=== PATIENT | female | born 1940 | race Caucasian/White ===

== ENCOUNTER 2016-09-27 17:15 | Inpatient (IN) | payer OTHER, MEDICARE ==
[~2016-09-27] VITALS: Ht 160 cm; Wt 90.6 kg
[~2016-09-27 17:15] MED LIST: ACETAZOLAMIDE125 MG PO; ADVAIR 500/501 DISK IH; ADVAIR HFA120 INHALA IH; AMLODIPINE BESYL5 MG PO; ASPIR 8181 M1 PO; ASPIRIN81 M2 PO; AUGMENTIN500 MG PO; DUONEB 2.5-0.5 M3 ML IH; FA-80.8 MG PO; FUROSEMIDE20 MG PO; GLIPIZIDE5 MG PO; GLUCOPHAGE500 MG PO; JANUVIA100 MG PO; K-DUR10 MEQ PO; KLOR-CON M2020 MEQ PO; LASIX20 MG PO; LASIX40 MG PO; LEVAQUIN500 MG PO; LEVOFLOXACIN750 MG PO; LEVOTHYROXINE50 MCG PO; LIPITOR40 MG PO; LISINOPRIL20 MG PO; LOPRESSOR50 MG PO; METFORMIN HCL500 MG PO; METOPROLOL TART25 MG PO; MUCINEX600 MG PO; NORVASC10 MG PO; NYSTOP60 GM TP; PREDNISONE10 MG PO; PREDNISONE20 MG PO; PROAIR HFA8.5 GM IH; PROTONIX40 MG PO; Protonix PO; SIMVASTATIN20 MG PO; SIMVASTATIN5 MG PO; SPIRIVA RESPIMAT4 GM IH; SPIRIVA1 INHALATI IH; TIROSINT50 MCG PO; ZESTORETIC 20-1 EAC1 PO
[2016-09-27 18:24] LABS: BASOPHIL COUNT 0.1 K/uL (0-0.1); EOSINOPHIL (%) 1.5 % (0-5); EOSINOPHIL COUNT 0.2 K/uL (0-0.3); HEMATOCRIT 31.3 % (36.0-46.0); IMMATURE GRANULOCYTE (%) 1.7 % (0.0-0.7); LYMPHOCYTE COUNT 1.1 K/uL (1.0-2.8); MCH 29.1 PG (29.0-34.0); MCHC 29.7 G/DL (30.0-36.0); MCV 97.8 FL (83-99); MONOCYTE (%) 6.4 % (3-12); MONOCYTE COUNT 0.7 K/uL (0-0.8); NEUTROPHIL (%) 80.5 % (45-76); NEUTROPHIL COUNT 9.3 K/uL (1.8-6.4); PLATELET COUNT 262 K/uL (156-360); RBC DIS.WIDTH-CV 20.6 % (11.8-14.6); RBC DIS.WIDTH-SD 68.7 % (39-53); WHITE BLOOD COUNT 11.5 K/uL (4.1-10.2)
[2016-09-27 18:42] LABS: CHLORIDE 97 mEq/L (99-109); POTASSIUM 4.7 mEq/L (3.7-5.4); SODIUM 144 mEq/L (136-147)
[2016-09-27 18:45] LABS: GLUCOSE 203 mg/dL (70-99)
[2016-09-27 18:46] LABS: ANION GAP 9 MEQ/L (2-14); TROP-I INTERPRETATION NEGATIVE; TROPONIN-I < 0.01 ng/mL (0.0-0.30)
[2016-09-27 18:48] LABS: ALKALINE PHOSPHATASE 89 IU/L (3-129)
[2016-09-27 18:49] LABS: GFR ESTIMATE (CALCULATED) > 59 mL/min/
[2016-09-27 18:50] LABS: UREA NITROGEN (BUN) 30 mg/dL (9-23)
[2016-09-27] MEDS ORDERED: LASIX20 MG PO (20:54)
[2016-09-27] MEDS ORDERED: METFORMIN HCL500 M1 PO (20:55)
[2016-09-27] MEDS ORDERED: TYLENOL EXTRA500 MG PO (20:56)
[2016-09-27] MEDS ORDERED: FOLIC ACID0.4 MG PO (20:56)
[2016-09-27] MEDS ORDERED: ADVAIR 500/501 DISK IH (20:56)
[2016-09-27 23:36] VITALS: BP 122/60
[2016-09-28 04:00] VITALS: BP 112/52
[2016-09-28 08:00] VITALS: BP 138/58
[2016-09-28 08:42] LABS: HEMATOCRIT 28.3 % (36.0-46.0); MCH 28.6 PG (29.0-34.0); MCHC 29.3 G/DL (30.0-36.0); MCV 97.6 FL (83-99); MEAN PLAT.VOLUME 9.8 uM^3 (9.5-12.4); NRBC (%) 0.2 /100 WBC (0-0); PLATELET COUNT 226 K/uL (156-360); RBC DIS.WIDTH-CV 20.6 % (11.8-14.6); RBC DIS.WIDTH-SD 71.3 % (39-53); WHITE BLOOD COUNT 9.1 K/uL (4.1-10.2)
[2016-09-28 09:01] LABS: EOSINOPHIL (%) 1.7 % (0-5); EOSINOPHIL COUNT 0.2 K/uL (0-0.3); IMMATURE GRANULOCYTE (%) 1.2 % (0.0-0.7); IMMATURE GRANULOCYTE COUNT 0.1 K/uL; LYMPHOCYTE COUNT 0.7 K/uL (1.0-2.8); MONOCYTE (%) 7.5 % (3-12); MONOCYTE COUNT 0.7 K/uL (0-0.8); NEUTROPHIL (%) 81.9 % (45-76); NEUTROPHIL COUNT 7.5 K/uL (1.8-6.4)
[2016-09-28 09:21] LABS: ANION GAP ND MEQ/L (2-14); CARBON DIOXIDE (BICARBONATE) > 40.0 MEQ/L (20-31); CHLORIDE 95 MEQ/L (99-109); GFR ESTIMATE (CALCULATED) > 59 mL/min/; GLUCOSE 180 mg/dL (70-99); POTASSIUM 4.3 MEQ/L (3.7-5.4); SAMPLE HEMOLYSIS CHECK 0; SAMPLE ICTERIC CHECK 0; SAMPLE LIPEMIA CHECK 0; SODIUM 145 MEQ/L (136-147); UREA NITROGEN (BUN) 26 mg/dL (9-23)
[2016-09-28 10:01] LABS: BASE EXCESS 20.2 mEq/L (-3 to +3); BICARBONATE 46.9 mEq/L (22-26); CARBOXY HGB 3.9 % (0-5); COMMENTS - BLOOD GASES NAC+; DEVICE NC; METHEMOGLOBIN 1.8 % (0-1.5); O2 FLOW 5 L/MIN; PCO2 74 mm Hg (35-45); PO2 68 mm Hg (80-100); SITE RR; TOTAL RESP RATE 19 resp/min; pH 7.41 (7.35-7.45)
[2016-09-28 12:40] VITALS: BP 119/62
[2016-09-28 12:43] LABS: POINT-OF-CARE METER ID UU13113831
[2016-09-28 16:06] VITALS: BP 97/50
[2016-09-28 17:00] LABS: POINT-OF-CARE METER ID UU13113831
[2016-09-28 20:31] VITALS: BP 111/53
[2016-09-28 21:33] LABS: POINT-OF-CARE METER ID UU13113700
[2016-09-28 23:45] VITALS: BP 134/100
[2016-09-29 00:10] VITALS: BP 110/51
[2016-09-29 04:15] VITALS: BP 109/51
[2016-09-29 06:55] LABS: POINT-OF-CARE METER ID UU13113700
[2016-09-29 07:26] LABS: HEMATOCRIT 31.5 % (36.0-46.0); MCH 28.9 PG (29.0-34.0); MCHC 29.2 G/DL (30.0-36.0); MCV 99.1 FL (83-99); MEAN PLAT.VOLUME 10.7 uM^3 (9.5-12.4); PLATELET COUNT 223 K/uL (156-360); RBC DIS.WIDTH-CV 20.1 % (11.8-14.6); RBC DIS.WIDTH-SD 71.8 % (39-53); RED BLOOD COUNT 3.18 M/uL (3.80-5.20); WHITE BLOOD COUNT 8.6 K/uL (4.1-10.2)
[2016-09-29 07:35] LABS: EOSINOPHIL (%) 1.9 % (0-5); EOSINOPHIL COUNT 0.2 K/uL (0-0.3); IMMATURE GRANULOCYTE (%) 1.5 % (0.0-0.7); IMMATURE GRANULOCYTE COUNT 0.1 K/uL; LYMPHOCYTE COUNT 0.7 K/uL (1.0-2.8); MONOCYTE (%) 7.7 % (3-12); MONOCYTE COUNT 0.7 K/uL (0-0.8); NEUTROPHIL (%) 80.3 % (45-76); NEUTROPHIL COUNT 6.9 K/uL (1.8-6.4)
[2016-09-29 07:43] VITALS: BP 103/48
[2016-09-29 09:13] LABS: ANION GAP ND MEQ/L (2-14); CHLORIDE 94 MEQ/L (99-109); GFR ESTIMATE (CALCULATED) > 59 mL/min/; GLUCOSE 175 mg/dL (70-99); POTASSIUM 4.2 MEQ/L (3.7-5.4); SAMPLE HEMOLYSIS CHECK 0; SAMPLE ICTERIC CHECK 0; SAMPLE LIPEMIA CHECK 0; SODIUM 145 MEQ/L (136-147); UREA NITROGEN (BUN) 31 mg/dL (9-23)
[2016-09-29 09:14] LABS: CARBON DIOXIDE (BICARBONATE) > 40.0 MEQ/L (20-31)
[2016-09-29 12:30] VITALS: BP 104/57; BP 114/54
[2016-09-29 12:45] LABS: POINT-OF-CARE METER ID UU13113831
[2016-09-29 15:45] VITALS: BP 107/51
[2016-09-29 17:14] LABS: POINT-OF-CARE METER ID UU14162513
[2016-09-29 20:24] VITALS: BP 115/54
[2016-09-29 21:38] LABS: POINT-OF-CARE METER ID UU13113831
[2016-09-30 00:08] VITALS: BP 110/54
[2016-09-30 04:16] VITALS: BP 117/58
[2016-09-30 06:44] LABS: HEMATOCRIT 26.5 % (36.0-46.0); MCH 28.8 PG (29.0-34.0); MCHC 28.3 G/DL (30.0-36.0); MCV 101.9 FL (83-99); MEAN PLAT.VOLUME 10.3 uM^3 (9.5-12.4); PLATELET COUNT 230 K/uL (156-360); RBC DIS.WIDTH-CV 19.9 % (11.8-14.6); RBC DIS.WIDTH-SD 72.8 % (39-53); WHITE BLOOD COUNT 7.5 K/uL (4.1-10.2)
[2016-09-30 07:09] LABS: ANION GAP ND MEQ/L (2-14); CHLORIDE 96 MEQ/L (99-109); GFR ESTIMATE (CALCULATED) > 59 mL/min/; GLUCOSE 179 mg/dL (70-99); POTASSIUM 4.2 MEQ/L (3.7-5.4); SAMPLE HEMOLYSIS CHECK 0; SAMPLE ICTERIC CHECK 0; SAMPLE LIPEMIA CHECK 0; SODIUM 146 MEQ/L (136-147); UREA NITROGEN (BUN) 33 mg/dL (9-23)
[2016-09-30 07:12] LABS: CARBON DIOXIDE (BICARBONATE) > 40.0 MEQ/L (20-31)
[2016-09-30 07:48] VITALS: BP 120/53
[2016-09-30 11:47] VITALS: BP 105/52
[2016-09-30 11:58] LABS: POINT-OF-CARE METER ID UU13113700
[2016-09-30 13:21] LABS: MCV 100.7 FL (83-99)
[2016-09-30 15:42] VITALS: BP 105/47
[2016-09-30 17:24] LABS: POINT-OF-CARE METER ID UU13113700
[2016-09-30 20:00] VITALS: BP 100/62
[2016-09-30 21:17] LABS: POINT-OF-CARE METER ID UU13113831
[2016-10-01] VITALS (11 sets, daily range): BP systolic 90–134; BP diastolic 43–62
[2016-10-01 07:48] LABS: POINT-OF-CARE METER ID UU13113831
[2016-10-01 09:44] LABS: ABSOLUTE RETICULOCYTE CT. 0.21 M/uL (0.02-0.08); HEMATOCRIT 25.4 % (36.0-46.0); IMM.RETIC FRACTION 18.3 % (3-19); MCH 28.3 PG (29.0-34.0); MCV 101.2 FL (83-99); MEAN PLAT.VOLUME 10.5 uM^3 (9.5-12.4); PLATELET COUNT 247 K/uL (156-360); RBC DIS.WIDTH-CV 19.3 % (11.8-14.6); RBC DIS.WIDTH-SD 71.5 % (39-53); RED BLOOD COUNT 2.51 M/uL (3.80-5.20); RETICULOCYTE COUNT 8.6 % (0.5-1.8); WHITE BLOOD COUNT 7.2 K/uL (4.1-10.2)
[2016-10-01 10:47] LABS: FERRITIN 129 NG/ML (10-291)
[2016-10-01 10:49] LABS: ANION GAP ND MEQ/L (2-14); CHLORIDE 93 MEQ/L (99-109); GFR ESTIMATE (CALCULATED) > 59 mL/min/; GLUCOSE 185 mg/dL (70-99); MAGNESIUM 1.9 mg/dl (1.3-2.7); POTASSIUM 4.2 MEQ/L (3.7-5.4); SAMPLE HEMOLYSIS CHECK 0; SAMPLE ICTERIC CHECK 0; SAMPLE LIPEMIA CHECK 0; SODIUM 146 MEQ/L (136-147); UREA NITROGEN (BUN) 33 mg/dL (9-23)
[2016-10-01 10:50] LABS: CARBON DIOXIDE (BICARBONATE) > 40.0 MEQ/L (20-31)
[2016-10-02 00:40] VITALS: BP 107/51
[2016-10-02 05:55] VITALS: BP 114/58
[2016-10-02 06:43] LABS: HEMATOCRIT 27.1 % (36.0-46.0); MCH 29.9 PG (29.0-34.0); MCHC 29.9 G/DL (30.0-36.0); MEAN PLAT.VOLUME 11.7 uM^3 (9.5-12.4); PLATELET COUNT 216 K/uL (156-360); RBC DIS.WIDTH-CV 18.1 % (11.8-14.6); RBC DIS.WIDTH-SD 65.8 % (39-53); RED BLOOD COUNT 2.71 M/uL (3.80-5.20); WHITE BLOOD COUNT 8.7 K/uL (4.1-10.2)
[2016-10-02 07:56] VITALS: BP 115/55
[2016-10-02 11:49] VITALS: BP 108/63
[2016-10-02 12:10] LABS: POINT-OF-CARE METER ID UU13113831
[2016-10-02 15:52] VITALS: BP 114/55
[2016-10-02] MEDS ORDERED: FURO40I IV (16:34)
[2016-10-02] MEDS ORDERED: PROTONIX IV40 MG IV (16:34)
[2016-10-02 17:43] LABS: POINT-OF-CARE METER ID UU13113831
[2016-10-02 19:57] VITALS: BP 102/49
[2016-10-02 20:29] LABS: HEMATOCRIT 25.9 % (36.0-46.0); MCV 99.6 FL (83-99)
[2016-10-03] VITALS (7 sets, daily range): BP systolic 97–129; BP diastolic 46–58
[2016-10-03 06:18] LABS: HEMATOCRIT 25.7 % (36.0-46.0); MCH 29.4 PG (29.0-34.0); MCHC 29.2 G/DL (30.0-36.0); MCV 100.8 FL (83-99); MEAN PLAT.VOLUME 10.3 uM^3 (9.5-12.4); PLATELET COUNT 231 K/uL (156-360); RBC DIS.WIDTH-CV 17.8 % (11.8-14.6); RBC DIS.WIDTH-SD 65.4 % (39-53); RED BLOOD COUNT 2.55 M/uL (3.80-5.20); WHITE BLOOD COUNT 6.8 K/uL (4.1-10.2)
[2016-10-03 06:47] LABS: ANION GAP 11 MEQ/L (2-14); CHLORIDE 95 MEQ/L (99-109); GFR ESTIMATE (CALCULATED) > 59 mL/min/; GLUCOSE 157 mg/dL (70-99); SAMPLE HEMOLYSIS CHECK 0; SAMPLE ICTERIC CHECK 0; SAMPLE LIPEMIA CHECK 0; SODIUM 146 MEQ/L (136-147); UREA NITROGEN (BUN) 24 mg/dL (9-23)
[2016-10-03 12:20] LABS: POINT-OF-CARE METER ID UU13113700
[2016-10-03 16:49] LABS: POINT-OF-CARE METER ID UU13113700
[2016-10-03 20:11] LABS: HEMATOCRIT 24.5 % (36.0-46.0); MCV 98.8 FL (83-99)
[2016-10-03 21:14] LABS: POINT-OF-CARE METER ID UU13113700
[2016-10-04 00:18] VITALS: BP 98/47
[2016-10-04 04:28] VITALS: BP 99/51
[2016-10-04 07:56] LABS: POINT-OF-CARE METER ID UU14174225
[2016-10-04 08:05] VITALS: BP 95/63
[2016-10-04 11:06] VITALS: BP 122/56
[2016-10-04 11:07] LABS: POINT-OF-CARE METER ID UU14174225
[2016-10-04 15:11] VITALS: BP 138/60
[2016-10-04 16:17] LABS: POINT-OF-CARE METER ID UU14174225
[2016-10-04 20:00] VITALS: BP 117/57
[2016-10-04 20:32] LABS: MCV 99.6 FL (83-99)
[2016-10-05] VITALS (15 sets, daily range): BP systolic 92–144; BP diastolic 41–63
[2016-10-05 07:09] LABS: ANION GAP 10 MEQ/L (2-14); CHLORIDE 97 MEQ/L (99-109); GFR ESTIMATE (CALCULATED) 57 mL/min/; GLUCOSE 160 mg/dL (70-99); POTASSIUM 3.7 MEQ/L (3.7-5.4); SAMPLE HEMOLYSIS CHECK 0; SAMPLE ICTERIC CHECK 0; SAMPLE LIPEMIA CHECK 0; SODIUM 143 MEQ/L (136-147); UREA NITROGEN (BUN) 33 mg/dL (9-23)
[2016-10-05 08:06] LABS: EOSINOPHIL (%) 3.1 % (0-5); EOSINOPHIL COUNT 0.2 K/uL (0-0.3); HEMATOCRIT 22.7 % (36.0-46.0); IMMATURE GRANULOCYTE (%) 0.5 % (0.0-0.7); LYMPHOCYTE COUNT 0.7 K/uL (1.0-2.8); MCH 29.1 PG (29.0-34.0); MCHC 29.1 G/DL (30.0-36.0); MEAN PLAT.VOLUME 10.5 uM^3 (9.5-12.4); MONOCYTE (%) 6.4 % (3-12); MONOCYTE COUNT 0.5 K/uL (0-0.8); NEUTROPHIL (%) 80.8 % (45-76); NEUTROPHIL COUNT 6.3 K/uL (1.8-6.4); PLATELET COUNT 233 K/uL (156-360); RBC DIS.WIDTH-CV 17.5 % (11.8-14.6); RBC DIS.WIDTH-SD 63.9 % (39-53); RED BLOOD COUNT 2.27 M/uL (3.80-5.20); WHITE BLOOD COUNT 7.8 K/uL (4.1-10.2)
[2016-10-05 11:21] LABS: TROP-I INTERPRETATION NEGATIVE; TROPONIN-I < 0.01 ng/mL (0.0-0.30)
[2016-10-05 14:22] LABS: HEMATOCRIT 25.7 % (36.0-46.0); MCH 29.3 PG (29.0-34.0); MCV 97.7 FL (83-99); MEAN PLAT.VOLUME 10.2 uM^3 (9.5-12.4); PLATELET COUNT 237 K/uL (156-360); RBC DIS.WIDTH-CV 16.5 % (11.8-14.6); RBC DIS.WIDTH-SD 58.6 % (39-53); RED BLOOD COUNT 2.63 M/uL (3.80-5.20)
[2016-10-05 14:24] LABS: WHITE BLOOD COUNT 12.8 K/uL (4.1-10.2)
[2016-10-05 16:26] LABS: POINT-OF-CARE METER ID UU13113781
[2016-10-05 20:58] LABS: POINT-OF-CARE METER ID UU13113781
[2016-10-05 21:32] LABS: HEMATOCRIT 26.8 % (36.0-46.0); MCV 94.7 FL (83-99)
[2016-10-06 00:30] VITALS: BP 108/59
[2016-10-06 02:08] LABS: MCV 95.4 FL (83-99)
[2016-10-06 04:15] VITALS: BP 122/58
[2016-10-06 06:38] LABS: HEMATOCRIT 25.7 % (36.0-46.0); MCH 29.5 PG (29.0-34.0); MCHC 30.7 G/DL (30.0-36.0); MCV 95.9 FL (83-99); MEAN PLAT.VOLUME 10.4 uM^3 (9.5-12.4); PLATELET COUNT 218 K/uL (156-360); RBC DIS.WIDTH-CV 17.6 % (11.8-14.6); RBC DIS.WIDTH-SD 58.2 % (39-53); RED BLOOD COUNT 2.68 M/uL (3.80-5.20); WHITE BLOOD COUNT 8.6 K/uL (4.1-10.2)
[2016-10-06 07:21] VITALS: BP 114/53
[2016-10-06 07:53] LABS: ANION GAP 8 MEQ/L (2-14); CHLORIDE 98 MEQ/L (99-109); GFR ESTIMATE (CALCULATED) > 59 mL/min/; GLUCOSE 136 mg/dL (70-99); POTASSIUM 4.1 MEQ/L (3.7-5.4); SAMPLE HEMOLYSIS CHECK 0; SAMPLE ICTERIC CHECK 0; SAMPLE LIPEMIA CHECK 0; SODIUM 142 MEQ/L (136-147); UREA NITROGEN (BUN) 39 mg/dL (9-23)
[2016-10-06 11:03] LABS: POINT-OF-CARE METER ID UU13113698
[2016-10-06 11:08] VITALS: BP 108/53
[2016-10-06 16:07] LABS: POINT-OF-CARE METER ID UU13113698
[2016-10-06 17:02] VITALS: BP 123/58
[2016-10-06 19:07] VITALS: BP 114/53
[2016-10-07] VITALS (7 sets, daily range): BP systolic 99–149; BP diastolic 48–74
[2016-10-07 06:25] LABS: HEMATOCRIT 25.4 % (36.0-46.0); MCH 29.5 PG (29.0-34.0); MCHC 29.9 G/DL (30.0-36.0); MCV 98.4 FL (83-99); MEAN PLAT.VOLUME 10.6 uM^3 (9.5-12.4); PLATELET COUNT 229 K/uL (156-360); RBC DIS.WIDTH-CV 16.9 % (11.8-14.6); RED BLOOD COUNT 2.58 M/uL (3.80-5.20); WHITE BLOOD COUNT 6.3 K/uL (4.1-10.2)
[2016-10-07 07:52] LABS: POINT-OF-CARE METER ID UU13113781
[2016-10-07 12:32] LABS: POINT-OF-CARE METER ID UU13113781
[2016-10-07 16:30] LABS: POINT-OF-CARE METER ID UU13113781
[2016-10-08] VITALS (14 sets, daily range): BP systolic 96–148; BP diastolic 51–77
[2016-10-08 08:01] LABS: POINT-OF-CARE METER ID UU13113698
[2016-10-08 12:02] LABS: POINT-OF-CARE METER ID UU13113698
[2016-10-08 12:42] LABS: EOSINOPHIL (%) 0.2 % (0-5); HEMATOCRIT 17.6 % (36.0-46.0); IMMATURE GRANULOCYTE (%) 0.8 % (0.0-0.7); LYMPHOCYTE COUNT 0.6 K/uL (1.0-2.8); MCH 28.3 PG (29.0-34.0); MCHC 29.5 G/DL (30.0-36.0); MCV 96.2 FL (83-99); MEAN PLAT.VOLUME 10.1 uM^3 (9.5-12.4); MONOCYTE (%) 6.9 % (3-12); MONOCYTE COUNT 0.3 K/uL (0-0.8); NEUTROPHIL (%) 80.6 % (45-76); PLATELET COUNT 236 K/uL (156-360); RBC DIS.WIDTH-CV 16.2 % (11.8-14.6); RBC DIS.WIDTH-SD 56.6 % (39-53); RED BLOOD COUNT 1.84 M/uL (3.80-5.20); WHITE BLOOD COUNT 4.9 K/uL (4.1-10.2)
[2016-10-08 13:29] LABS: HEMATOLOGY COMMENT 1 SMEAR COMPATIBLE; USER ID BLP
[2016-10-08 20:50] LABS: POINT-OF-CARE METER ID UU14174216
[2016-10-09 04:10] VITALS: BP 125/57
[2016-10-09 08:17] LABS: POINT-OF-CARE METER ID UU13113781
[2016-10-09 08:28] LABS: HEMATOCRIT 24.1 % (36.0-46.0); MCH 29.7 PG (29.0-34.0); MCHC 31.5 G/DL (30.0-36.0); MCV 94.1 FL (83-99); MEAN PLAT.VOLUME 10.3 uM^3 (9.5-12.4); PLATELET COUNT 246 K/uL (156-360); RBC DIS.WIDTH-CV 15.6 % (11.8-14.6); RBC DIS.WIDTH-SD 53.2 % (39-53); RED BLOOD COUNT 2.56 M/uL (3.80-5.20); WHITE BLOOD COUNT 5.9 K/uL (4.1-10.2)
[2016-10-09 08:35] VITALS: BP 130/63
[2016-10-09 09:01] LABS: ANION GAP ND MEQ/L (2-14); CHLORIDE 94 MEQ/L (99-109); GFR ESTIMATE (CALCULATED) > 59 mL/min/; GLUCOSE 164 mg/dL (70-99); POTASSIUM 4.4 MEQ/L (3.7-5.4); SAMPLE HEMOLYSIS CHECK 0; SAMPLE ICTERIC CHECK 0; SAMPLE LIPEMIA CHECK 0; SODIUM 141 MEQ/L (136-147); UREA NITROGEN (BUN) 56 mg/dL (9-23)
[2016-10-09 09:03] LABS: CARBON DIOXIDE (BICARBONATE) > 40.0 MEQ/L (20-31)
[2016-10-09 11:47] LABS: POINT-OF-CARE METER ID UU13113781
[2016-10-09 12:08] VITALS: BP 119/59; BP 130/63
[2016-10-09 17:37] VITALS: BP 131/60
[2016-10-09 19:56] VITALS: BP 119/55
[2016-10-09 23:15] VITALS: BP 128/63
[2016-10-10] VITALS (11 sets, daily range): BP systolic 144–182; BP diastolic 63–77
[2016-10-10 07:34] LABS: POINT-OF-CARE METER ID UU13113781
[2016-10-10 08:30] LABS: HEMATOCRIT 24.6 % (36.0-46.0); MCH 29.2 PG (29.0-34.0); MCHC 30.9 G/DL (30.0-36.0); MCV 94.6 FL (83-99); MEAN PLAT.VOLUME 10.1 uM^3 (9.5-12.4); NRBC (%) 0.3 /100 WBC (0-0); PLATELET COUNT 299 K/uL (156-360); RBC DIS.WIDTH-CV 15.5 % (11.8-14.6); RBC DIS.WIDTH-SD 52.6 % (39-53); WHITE BLOOD COUNT 6.2 K/uL (4.1-10.2)
[2016-10-10 08:47] LABS: EOSINOPHIL (%) 0.8 % (0-5); EOSINOPHIL COUNT 0.1 K/uL (0-0.3); IMMATURE GRANULOCYTE (%) 2.1 % (0.0-0.7); IMMATURE GRANULOCYTE COUNT 0.1 K/uL; LYMPHOCYTE COUNT 1.2 K/uL (1.0-2.8); MONOCYTE (%) 8.2 % (3-12); MONOCYTE COUNT 0.5 K/uL (0-0.8); NEUTROPHIL COUNT 4.3 K/uL (1.8-6.4)
[2016-10-10 09:06] LABS: ANION GAP 9 MEQ/L (2-14); CHLORIDE 94 MEQ/L (99-109); GFR ESTIMATE (CALCULATED) > 59 mL/min/; GLUCOSE 143 mg/dL (70-99); POTASSIUM 4.2 MEQ/L (3.7-5.4); SAMPLE HEMOLYSIS CHECK 0; SAMPLE ICTERIC CHECK 0; SAMPLE LIPEMIA CHECK 0; SODIUM 143 MEQ/L (136-147); UREA NITROGEN (BUN) 43 mg/dL (9-23)
[2016-10-10 09:10] LABS: HEMATOLOGY COMMENT 1 SMEAR COMPATIBLE; USER ID SDF
[2016-10-10 11:19] LABS: POINT-OF-CARE METER ID UU13113781
[2016-10-10 16:18] LABS: POINT-OF-CARE METER ID UU13113781
[2016-10-10 21:59] LABS: POINT-OF-CARE METER ID UU13113698
[2016-10-11 04:38] VITALS: BP 171/73
[2016-10-11 07:03] LABS: HEMATOCRIT 31.8 % (36.0-46.0); MCH 29.8 PG (29.0-34.0); MCHC 31.8 G/DL (30.0-36.0); MCV 93.8 FL (83-99); MEAN PLAT.VOLUME 10.3 uM^3 (9.5-12.4); PLATELET COUNT 304 K/uL (156-360); RBC DIS.WIDTH-CV 15.6 % (11.8-14.6); RBC DIS.WIDTH-SD 52.7 % (39-53); RED BLOOD COUNT 3.39 M/uL (3.80-5.20); WHITE BLOOD COUNT 7.5 K/uL (4.1-10.2)
[2016-10-11 07:32] LABS: ANION GAP 10 MEQ/L (2-14); CHLORIDE 92 MEQ/L (99-109); GFR ESTIMATE (CALCULATED) 57 mL/min/; GLUCOSE 127 mg/dL (70-99); POTASSIUM 4.1 MEQ/L (3.7-5.4); SAMPLE HEMOLYSIS CHECK 0; SAMPLE ICTERIC CHECK 0; SAMPLE LIPEMIA CHECK 0; SODIUM 142 MEQ/L (136-147); UREA NITROGEN (BUN) 36 mg/dL (9-23)
[2016-10-11 07:42] LABS: POINT-OF-CARE METER ID UU13113698
[2016-10-11 08:20] VITALS: BP 158/71
[2016-10-11 11:02] LABS: POINT-OF-CARE METER ID UU13113698
[2016-10-11 12:00] VITALS: BP 126/59
[2016-10-11 13:16] LABS: HEMATOCRIT 34.2 % (36.0-46.0); MCV 93.2 FL (83-99)
[2016-10-11 16:16] LABS: POINT-OF-CARE METER ID UU13113698
[2016-10-11 17:00] VITALS: BP 160/74
[2016-10-11 19:20] VITALS: BP 162/70
[2016-10-11 19:47] LABS: EOSINOPHIL (%) 0 % (0-5); HEMATOCRIT 32.4 % (36.0-46.0); IMMATURE GRANULOCYTE COUNT 0.2 K/uL; LYMPHOCYTE COUNT 0.7 K/uL (1.0-2.8); MCH 28.3 PG (29.0-34.0); MCHC 30.6 G/DL (30.0-36.0); MCV 92.6 FL (83-99); MONOCYTE (%) 2.7 % (3-12); MONOCYTE COUNT 0.3 K/uL (0-0.8); NEUTROPHIL (%) 87.7 % (45-76); NEUTROPHIL COUNT 8.5 K/uL (1.8-6.4); PLATELET COUNT 364 K/uL (156-360); RBC DIS.WIDTH-CV 15.5 % (11.8-14.6); RBC DIS.WIDTH-SD 51.9 % (39-53); WHITE BLOOD COUNT 9.7 K/uL (4.1-10.2)
[2016-10-11 20:23] LABS: ANION GAP 12 MEQ/L (2-14); CHLORIDE 93 MEQ/L (99-109); GFR ESTIMATE (CALCULATED) > 59 mL/min/; POTASSIUM 4.6 MEQ/L (3.7-5.4); SAMPLE HEMOLYSIS CHECK 0; SAMPLE ICTERIC CHECK 0; SAMPLE LIPEMIA CHECK 0; SODIUM 140 MEQ/L (136-147); UREA NITROGEN (BUN) 33 mg/dL (9-23)
[2016-10-11 20:24] LABS: GLUCOSE 273 mg/dL (70-99)
[2016-10-11 20:41] LABS: POINT-OF-CARE METER ID UU13113698
[2016-10-11 23:30] VITALS: BP 178/64
[2016-10-12 03:30] VITALS: BP 188/74
[2016-10-12 05:52] LABS: MCH 28.6 PG (29.0-34.0); MCHC 30.6 G/DL (30.0-36.0); MCV 93.5 FL (83-99); RBC DIS.WIDTH-CV 15.4 % (11.8-14.6); RBC DIS.WIDTH-SD 51.8 % (39-53); RED BLOOD COUNT 3.53 M/uL (3.80-5.20); WHITE BLOOD COUNT 8.7 K/uL (4.1-10.2)
[2016-10-12 06:11] LABS: ANION GAP 10 MEQ/L (2-14); CHLORIDE 93 MEQ/L (99-109); GFR ESTIMATE (CALCULATED) > 59 mL/min/; POTASSIUM 3.9 MEQ/L (3.7-5.4); SAMPLE HEMOLYSIS CHECK 0; SAMPLE ICTERIC CHECK 0; SAMPLE LIPEMIA CHECK 0; SODIUM 143 MEQ/L (136-147); UREA NITROGEN (BUN) 31 mg/dL (9-23)
[2016-10-12 06:17] LABS: EOSINOPHIL (%) 0.7 % (0-5); EOSINOPHIL COUNT 0.1 K/uL (0-0.3); IMMATURE GRANULOCYTE (%) 2.1 % (0.0-0.7); IMMATURE GRANULOCYTE COUNT 0.2 K/uL; LYMPHOCYTE COUNT 1.2 K/uL (1.0-2.8); MONOCYTE (%) 8.9 % (3-12); MONOCYTE COUNT 0.8 K/uL (0-0.8); NEUTROPHIL COUNT 6.5 K/uL (1.8-6.4)
[2016-10-12 06:39] LABS: GLUCOSE 119 mg/dL (70-99)
[2016-10-12 06:58] LABS: PLAT.SUFFICIENCY INCREASED; PLATELET COUNT 323 K/uL (156-360); USER ID SDF
[2016-10-12 08:06] LABS: POINT-OF-CARE METER ID UU13113781
[2016-10-12 08:15] VITALS: BP 146/74
[2016-10-12 11:42] LABS: POINT-OF-CARE METER ID UU13113781
[2016-10-12 12:00] VITALS: BP 142/63
[2016-10-12 16:30] VITALS: BP 142/63
[2016-10-12 16:54] LABS: POINT-OF-CARE METER ID UU13113781
[2016-10-12 19:30] VITALS: BP 146/65
[2016-10-12 21:06] LABS: POINT-OF-CARE METER ID UU13113781
[2016-10-12 23:30] VITALS: BP 134/62
[2016-10-13 03:20] VITALS: BP 178/70
[2016-10-13 06:44] LABS: EOSINOPHIL (%) 1.6 % (0-5); EOSINOPHIL COUNT 0.2 K/uL (0-0.3); HEMATOCRIT 33.7 % (36.0-46.0); IMMATURE GRANULOCYTE (%) 1.8 % (0.0-0.7); IMMATURE GRANULOCYTE COUNT 0.2 K/uL; LYMPHOCYTE COUNT 1.2 K/uL (1.0-2.8); MCH 28.7 PG (29.0-34.0); MCHC 30.6 G/DL (30.0-36.0); MCV 93.9 FL (83-99); MONOCYTE (%) 9.9 % (3-12); NEUTROPHIL (%) 74.5 % (45-76); NEUTROPHIL COUNT 7.3 K/uL (1.8-6.4); PLATELET COUNT 386 K/uL (156-360); RBC DIS.WIDTH-CV 14.7 % (11.8-14.6); RBC DIS.WIDTH-SD 50.4 % (39-53); RED BLOOD COUNT 3.59 M/uL (3.80-5.20); WHITE BLOOD COUNT 9.8 K/uL (4.1-10.2)
[2016-10-13 08:00] VITALS: BP 166/74
[2016-10-13 08:01] LABS: POINT-OF-CARE METER ID UU14174216
[2016-10-13 09:11] LABS: ANION GAP 12 MEQ/L (2-14); CHLORIDE 90 MEQ/L (99-109); GFR ESTIMATE (CALCULATED) > 59 mL/min/; GLUCOSE 151 mg/dL (70-99); POTASSIUM 3.5 MEQ/L (3.7-5.4); SAMPLE HEMOLYSIS CHECK 0; SAMPLE ICTERIC CHECK 0; SAMPLE LIPEMIA CHECK 0; SODIUM 142 MEQ/L (136-147); UREA NITROGEN (BUN) 28 mg/dL (9-23)
[2016-10-13 12:05] LABS: POINT-OF-CARE METER ID UU14174216
[2016-10-13 12:20] VITALS: BP 150/66
[2016-10-13 16:38] LABS: POINT-OF-CARE METER ID UU14174216
[2016-10-13 17:00] VITALS: BP 154/69
[2016-10-13 19:30] VITALS: BP 158/70
[2016-10-13 20:22] LABS: POINT-OF-CARE METER ID UU14174216
[2016-10-13 23:30] VITALS: BP 158/62
[2016-10-14 03:20] VITALS: BP 156/62
[2016-10-14 06:36] LABS: EOSINOPHIL (%) 2.1 % (0-5); EOSINOPHIL COUNT 0.2 K/uL (0-0.3); HEMATOCRIT 34.8 % (36.0-46.0); IMMATURE GRANULOCYTE (%) 1.7 % (0.0-0.7); IMMATURE GRANULOCYTE COUNT 0.2 K/uL; LYMPHOCYTE COUNT 1.2 K/uL (1.0-2.8); MCH 28.4 PG (29.0-34.0); MCHC 30.5 G/DL (30.0-36.0); MCV 93.3 FL (83-99); MEAN PLAT.VOLUME 10.8 uM^3 (9.5-12.4); MONOCYTE (%) 10.6 % (3-12); MONOCYTE COUNT 1.1 K/uL (0-0.8); NEUTROPHIL (%) 74.8 % (45-76); NEUTROPHIL COUNT 8.1 K/uL (1.8-6.4); PLATELET COUNT 386 K/uL (156-360); RBC DIS.WIDTH-CV 14.4 % (11.8-14.6); RBC DIS.WIDTH-SD 49.4 % (39-53); RED BLOOD COUNT 3.73 M/uL (3.80-5.20); WHITE BLOOD COUNT 10.8 K/uL (4.1-10.2)
[2016-10-14 06:53] LABS: ANION GAP 10 MEQ/L (2-14); CHLORIDE 92 MEQ/L (99-109); GFR ESTIMATE (CALCULATED) > 59 mL/min/; GLUCOSE 148 mg/dL (70-99); SAMPLE HEMOLYSIS CHECK 1; SAMPLE ICTERIC CHECK 0; SAMPLE LIPEMIA CHECK 0; SODIUM 141 MEQ/L (136-147); UREA NITROGEN (BUN) 28 mg/dL (9-23)
[2016-10-14 07:34] LABS: POINT-OF-CARE METER ID UU14174216
[2016-10-14 08:36] VITALS: BP 167/64
[2016-10-14 11:25] LABS: POINT-OF-CARE METER ID UU14174216
[2016-10-14 11:51] VITALS: BP 136/62
[2016-10-14 15:07] VITALS: BP 132/71
[2016-10-14 16:25] LABS: POINT-OF-CARE METER ID UU14174216
[2016-10-14 19:20] VITALS: BP 142/63
[2016-10-14 21:03] LABS: POINT-OF-CARE METER ID UU14174216
[2016-10-15] VITALS (7 sets, daily range): BP systolic 112–165; BP diastolic 56–78
[2016-10-15 05:20] LABS: EOSINOPHIL (%) 2.1 % (0-5); EOSINOPHIL COUNT 0.3 K/uL (0-0.3); IMMATURE GRANULOCYTE (%) 1.1 % (0.0-0.7); IMMATURE GRANULOCYTE COUNT 0.1 K/uL; LYMPHOCYTE COUNT 1.3 K/uL (1.0-2.8); MCH 28.9 PG (29.0-34.0); MCHC 31.2 G/DL (30.0-36.0); MCV 92.6 FL (83-99); MEAN PLAT.VOLUME 10.2 uM^3 (9.5-12.4); MONOCYTE (%) 9.5 % (3-12); MONOCYTE COUNT 1.2 K/uL (0-0.8); NEUTROPHIL (%) 76.9 % (45-76); NEUTROPHIL COUNT 9.4 K/uL (1.8-6.4); PLATELET COUNT 384 K/uL (156-360); RBC DIS.WIDTH-CV 14.1 % (11.8-14.6); RBC DIS.WIDTH-SD 47.6 % (39-53); RED BLOOD COUNT 3.67 M/uL (3.80-5.20); WHITE BLOOD COUNT 12.3 K/uL (4.1-10.2)
[2016-10-15 05:44] LABS: ANION GAP 11 MEQ/L (2-14); CHLORIDE 92 MEQ/L (99-109); GFR ESTIMATE (CALCULATED) > 59 mL/min/; POTASSIUM 3.6 MEQ/L (3.7-5.4); SAMPLE HEMOLYSIS CHECK 0; SAMPLE ICTERIC CHECK 0; SAMPLE LIPEMIA CHECK 0; SODIUM 140 MEQ/L (136-147); UREA NITROGEN (BUN) 29 mg/dL (9-23)
[2016-10-15 05:47] LABS: GLUCOSE 89 mg/dL (70-99)
[2016-10-15 20:39] LABS: POINT-OF-CARE METER ID UU13113698; POINT-OF-CARE USER ID ENVMNS
[2016-10-16 04:37] VITALS: BP 131/75
[2016-10-16 05:56] LABS: EOSINOPHIL (%) 2.2 % (0-5); EOSINOPHIL COUNT 0.3 K/uL (0-0.3); HEMATOCRIT 33.4 % (36.0-46.0); IMMATURE GRANULOCYTE (%) 1.4 % (0.0-0.7); IMMATURE GRANULOCYTE COUNT 0.2 K/uL; LYMPHOCYTE COUNT 1.6 K/uL (1.0-2.8); MCH 28.4 PG (29.0-34.0); MCHC 30.2 G/DL (30.0-36.0); MCV 93.8 FL (83-99); MEAN PLAT.VOLUME 9.8 uM^3 (9.5-12.4); MONOCYTE (%) 7.4 % (3-12); MONOCYTE COUNT 0.9 K/uL (0-0.8); NEUTROPHIL (%) 76.3 % (45-76); NEUTROPHIL COUNT 9.5 K/uL (1.8-6.4); PLATELET COUNT 375 K/uL (156-360); RBC DIS.WIDTH-CV 14.1 % (11.8-14.6); RBC DIS.WIDTH-SD 48.3 % (39-53); RED BLOOD COUNT 3.56 M/uL (3.80-5.20); WHITE BLOOD COUNT 12.5 K/uL (4.1-10.2)
[2016-10-16 06:31] LABS: ANION GAP 7 MEQ/L (2-14); CHLORIDE 96 MEQ/L (99-109); GFR ESTIMATE (CALCULATED) > 59 mL/min/; POTASSIUM 3.6 MEQ/L (3.7-5.4); SAMPLE HEMOLYSIS CHECK 0; SAMPLE ICTERIC CHECK 0; SAMPLE LIPEMIA CHECK 0; SODIUM 140 MEQ/L (136-147); UREA NITROGEN (BUN) 36 mg/dL (9-23)
[2016-10-16 06:33] LABS: GLUCOSE 139 mg/dL (70-99)
[2016-10-16 07:21] VITALS: BP 128/57
[2016-10-16 11:00] VITALS: BP 131/61
[2016-10-16] MEDS ORDERED: CEFTIN500 MG PO (15:00)
[2016-10-16] MEDS ORDERED: AMLODIPINE BESY10 MG PO (15:00)
[2016-10-16] MEDS ORDERED: FUROSEMIDE40 MG PO (15:01)
[2016-10-16] MEDS ORDERED: LISINOPRIL10 MG PO (15:01)
[2016-10-16] MEDS ORDERED: PREDNISONE20 MG PO (15:01)
[2016-10-16] MEDS ORDERED: K-DUR10 MEQ PO (15:08)
== END 2016-10-16 15:49 | disposition home health service (06) | DRG 189 ==
LOC: EME 17:15 → 5WEST 20:47 → EDOF 20:47 → 5WEST 22:27 → 5SOUTH 09-28 08:02 → 4EAST 09-28 08:02 → 5WEST 09-28 08:02 → 5SOUTH 10-03 22:23 → 4EAST 10-05 15:16
PROVIDERS: Emergency Medicine; Hospitalist; Internal Medicine; Internal Medicine Gastroenterology; Nurse Practitioner Family; Physician Assistant Medical
PROC: 30233N1 Transfusion of Nonautologous Red Blood Cells into Peripheral Vein, Percutaneous Approach (ICD-10-PCS; principal; 2016-10-01)
DX: J96.21 Acute and chronic respiratory failure with hypoxia (principal); I50.33 Acute on chronic diastolic (congestive) heart failure; E87.2 Acidosis; K92.1 Melena; Z68.41 Body mass index [BMI] 40.0-44.9, adult; D62 Acute posthemorrhagic anemia; J44.1 Chronic obstructive pulmonary disease with (acute) exacerbation; J96.22 Acute and chronic respiratory failure with hypercapnia; E87.71 Transfusion associated circulatory overload; J40 Bronchitis, not specified as acute or chronic; I27.2 Other secondary pulmonary hypertension; R07.89 Other chest pain; E11.9 Type 2 diabetes mellitus without complications; I11.0 Hypertensive heart disease with heart failure; I25.10 Atherosclerotic heart disease of native coronary artery without angina pectoris; E03.9 Hypothyroidism, unspecified; E66.01 Morbid (severe) obesity due to excess calories; Z75.1 Person awaiting admission to adequate facility elsewhere; Z99.81 Dependence on supplemental oxygen; Z95.0 Presence of cardiac pacemaker; Z87.891 Personal history of nicotine dependence; Z95.2 Presence of prosthetic heart valve; Q27.33 Arteriovenous malformation of digestive system vessel
CPT/HCPCS: 36415; 36600; 71010; 71020; 71250; 80048; 80048 91; 80053; 80069; 81003; 82728; 82803; 82948; 83605; 83735; 83880; 84484; 85014; 85018; 85025; 85025 91; 85027; 85045; 86850; 86900; 86901; 86920; 87040; 93005; 93970; 94640; 94640 76; 94667; 94668; 94760; 94799; 99202; 99281; 99284; C9113; G0378; J0692; J0696; J1644; J1815; J1940; J7050; J7512; P9016

== ENCOUNTER 2016-11-11 21:26 | Emergency (ER) | payer OTHER, MEDICARE ==
[~2016-11-11] VITALS: Ht 165.1 cm; Wt 92.6 kg
[~2016-11-11 21:26] MED LIST changes: +AMLODIPINE BESY10 MG PO; +CEFTIN500 MG PO; +FOLIC ACID0.4 MG PO; +FURO40I IV; +FUROSEMIDE40 MG PO; +LISINOPRIL10 MG PO; +METFORMIN HCL500 M1 PO; +PROTONIX IV40 MG IV; +TYLENOL EXTRA500 MG PO
[2016-11-11 23:46] LABS: ADD MIUA? YES; BILIRUBIN NEGATIVE; BLOOD NEGATIVE; COLOR YELLOW ((YELLOW)); GLUCOSE (STRIP) NEGATIVE; KETONES NEGATIVE; LEUKOCYTES LARGE; NITRITE NEGATIVE; PROTEIN (STRIP) 30; SPECIFIC GRAVITY 1.018 (1.000-1.030); UROBILINOGEN 0.2 MG/DL (0.2-1.0)
[2016-11-11 23:53] LABS: BACTERIA RARE /HPF; EPITHELIAL CELLS 3+ /HPF; HYALINE CASTS 0-5 /LPF; MUCUS TRACE /LPF; WHITE BLOOD CELLS TNTC /HPF (0-5)
[2016-11-12 00:03] LABS: TOTAL BILIRUBIN 0.9 mg/dL (0.0-1.0)
[2016-11-12 00:04] LABS: INTER. NORMALIZED RATIO 1.1; PROTHROMBIN TIME 10.7 (9.2-11.2); PTT 27.3 (25-32)
[2016-11-12 00:10] LABS: MCH 29.4 PG (29.0-34.0); MCHC 31.3 G/DL (30.0-36.0); MCV 93.9 FL (83-99); MEAN PLAT.VOLUME 9.6 uM^3 (9.5-12.4); PLATELET COUNT 291 K/uL (156-360); RBC DIS.WIDTH-CV 19.6 % (11.8-14.6); RBC DIS.WIDTH-SD 61.6 % (39-53); WHITE BLOOD COUNT 8.4 K/uL (4.1-10.2)
[2016-11-12 00:12] LABS: INFLUENZA A VIRAL ANTIGEN NEGATIVE; INFLUENZA B VIRAL ANTIGEN NEGATIVE
[2016-11-12 01:03] LABS: FIBRINOGEN 570 MG/DL (160-450)
[2016-11-12 01:30] VITALS: BP 108/52
[2016-11-12] MEDS ORDERED: LEVAQUIN750 MG PO (01:49)
== END 2016-11-12 02:15 | disposition home or self-care (01) ==
LOC: EME 21:26
PROVIDERS: Emergency Medicine
DX: T80.89XA Other complications following infusion, transfusion and therapeutic injection, initial encounter (principal); R50.9 Fever, unspecified; N30.00 Acute cystitis without hematuria; E78.5 Hyperlipidemia, unspecified; J44.9 Chronic obstructive pulmonary disease, unspecified; E11.9 Type 2 diabetes mellitus without complications; Z95.0 Presence of cardiac pacemaker; Z87.891 Personal history of nicotine dependence
CPT/HCPCS: 71020; 81003; 82247; 82565; 83615; 84460; 84520; 85027; 85384; 85610; 85730; 86078; 87077; 87086; 87186; 87502; 99281; 99284

== ENCOUNTER 2016-11-27 09:34 | Emergency (ER) | payer OTHER, MEDICARE ==
[~2016-11-27] VITALS: Ht 160 cm; Wt 93.0 kg
[~2016-11-27 09:34] MED LIST changes: +LEVAQUIN750 MG PO
[2016-11-27 10:24] LABS: HEMATOCRIT 32.4 % (36.0-46.0); MCH 29.7 PG (29.0-34.0); MCHC 29.6 G/DL (30.0-36.0); MCV 100.3 FL (83-99); MEAN PLAT.VOLUME 9.4 uM^3 (9.5-12.4); PLATELET COUNT 243 K/uL (156-360); RBC DIS.WIDTH-SD 62.7 % (39-53); RED BLOOD COUNT 3.23 M/uL (3.80-5.20); WHITE BLOOD COUNT 12.7 K/uL (4.1-10.2)
[2016-11-27 10:29] LABS: CHLORIDE 98 mEq/L (99-109); POTASSIUM 3.9 mEq/L (3.7-5.4); SODIUM 145 mEq/L (136-147)
[2016-11-27 10:30] LABS: GLUCOSE 174 mg/dL (70-99); PROTHROMBIN TIME 10.3 (9.2-11.2); PTT 26.9 (25-32)
[2016-11-27 10:32] LABS: ANION GAP 9 MEQ/L (2-14)
[2016-11-27 10:34] LABS: GFR ESTIMATE (CALCULATED) > 59 mL/min/
[2016-11-27 10:35] LABS: UREA NITROGEN (BUN) 21 mg/dL (9-23)
[2016-11-27 10:41] LABS: TROP-I INTERPRETATION NEGATIVE; TROPONIN-I < 0.01 ng/mL (0.0-0.30)
[2016-11-27 13:00] VITALS: BP 106/40
== END 2016-11-27 13:04 | disposition home or self-care (01) ==
LOC: EME 09:34
PROVIDERS: Emergency Medicine
DX: D64.9 Anemia, unspecified (principal); R51 Headache; R32 Unspecified urinary incontinence; E11.9 Type 2 diabetes mellitus without complications; E78.5 Hyperlipidemia, unspecified; J44.9 Chronic obstructive pulmonary disease, unspecified; Z95.0 Presence of cardiac pacemaker; Z87.891 Personal history of nicotine dependence
CPT/HCPCS: 80048; 81003; 84484; 85027; 85610; 85730; 86850; 86900; 86901; 93005; 99281; 99284

== ENCOUNTER 2016-12-03 17:20 | Inpatient (IN) | payer OTHER, MEDICARE ==
[~2016-12-03] VITALS: Ht 157.5 cm; Wt 97.4 kg
[2016-12-03 17:44] LABS: BASOPHIL COUNT 0.1 K/uL (0-0.1); EOSINOPHIL (%) 1.3 % (0-5); EOSINOPHIL COUNT 0.2 K/uL (0-0.3); HEMATOCRIT 26.4 % (36.0-46.0); IMMATURE GRANULOCYTE (%) 3.5 % (0.0-0.7); IMMATURE GRANULOCYTE COUNT 0.5 K/uL; INSTRUMENT ABS NEUTROPHIL CT 10.6 K/uL; LYMPHOCYTE COUNT 0.7 K/uL (1.0-2.8); MCH 29.1 PG (29.0-34.0); MCV 103.9 FL (83-99); MEAN PLAT.VOLUME 9.9 uM^3 (9.5-12.4); MONOCYTE COUNT 0.8 K/uL (0-0.8); NEUTROPHIL (%) 83.2 % (45-76); NEUTROPHIL COUNT 10.6 K/uL (1.8-6.4); NRBC (%) 0.3 /100 WBC (0-0); PLATELET COUNT 257 K/uL (156-360); RBC DIS.WIDTH-CV 17.7 % (11.8-14.6); RBC DIS.WIDTH-SD 67.4 % (39-53); WHITE BLOOD COUNT 12.7 K/uL (4.1-10.2)
[2016-12-03 17:45] LABS: BASE EXCESS 17.1 mEq/L (-3 to +3); BICARBONATE 46.7 mEq/L (22-26); CARBOXY HGB 2.9 % (0-5); METHEMOGLOBIN 0.7 % (0-1.5); PCO2 104 mm Hg (35-45); PO2 56 mm Hg (80-100)
[2016-12-03 17:46] LABS: COMMENTS - BLOOD GASES C+; DEVICE NC; O2 FLOW 6 L/MIN; SITE LR; pH 7.26 (7.35-7.45)
[2016-12-03 17:50] LABS: RED BLOOD COUNT 2.54 M/uL (3.80-5.20)
[2016-12-03 17:58] LABS: CHLORIDE 96 mEq/L (99-109); POTASSIUM 4.4 mEq/L (3.7-5.4); SODIUM 144 mEq/L (136-147)
[2016-12-03 18:00] LABS: GLUCOSE 183 mg/dL (70-99)
[2016-12-03 18:01] LABS: ANION GAP 8 MEQ/L (2-14)
[2016-12-03 18:04] LABS: GFR ESTIMATE (CALCULATED) > 59 mL/min/
[2016-12-03 18:05] LABS: UREA NITROGEN (BUN) 26 mg/dL (9-23)
[2016-12-03 18:09] LABS: TROP-I INTERPRETATION NEGATIVE; TROPONIN-I < 0.01 ng/mL (0.0-0.30)
[2016-12-03 19:07] LABS: BASE EXCESS 20.4 mEq/L (-3 to +3); BICARBONATE 48.6 mEq/L (22-26); CARBOXY HGB 2.9 % (0-5); METHEMOGLOBIN 1.2 % (0-1.5); PO2 48 mm Hg (80-100); pH 7.34 (7.35-7.45)
[2016-12-03 19:08] LABS: COMMENTS - BLOOD GASES C+A+; DEVICE VENTILATOR; FI02 40 %; MODE SPONT; PCO2 90 mm Hg (35-45); PEEP 5 CM/H20; PRES. SUPPORT 18 CM/H2O; SITE LR; TOTAL RESP RATE 22 resp/min
[2016-12-03] MEDS ORDERED: ZESTRIL10 MG PO (20:01)
[2016-12-03] MEDS ORDERED: LASIX40 MG PO (20:01)
[2016-12-03] MEDS ORDERED: NORVASC10 MG PO (20:01)
[2016-12-03] MEDS ORDERED: SPIRIVA1 INHALATI IH (20:02)
[2016-12-03] MEDS ORDERED: CYANOCOBAL1000 MCG/2 IM (20:02)
[2016-12-03] MEDS ORDERED: K-DUR10 MEQ PO (20:02)
[2016-12-04] VITALS (11 sets, daily range): BP systolic 93–156; BP diastolic 47–86
[2016-12-04 00:53] LABS: TROP-I INTERPRETATION NEGATIVE; TROPONIN-I < 0.01 ng/mL (0.0-0.30)
[2016-12-04 07:31] LABS: TROP-I INTERPRETATION NEGATIVE; TROPONIN-I 0.01 ng/mL (0.0-0.30)
[2016-12-04 12:38] LABS: HEMATOCRIT 22.5 % (36.0-46.0); MCV 102.7 FL (83-99)
[2016-12-04 19:05] LABS: D-DIMER ELISA 0.64 mg/L FEU (< 0.57)
[2016-12-04 20:01] LABS: HEMATOCRIT 24.8 % (36.0-46.0); MCV 98.8 FL (83-99)
[2016-12-05] VITALS (12 sets, daily range): BP systolic 120–159; BP diastolic 56–88
[2016-12-05 05:18] LABS: POINT-OF-CARE METER ID UU14174225
[2016-12-05 07:17] LABS: HEMATOCRIT 27.2 % (36.0-46.0); MCV 97.5 FL (83-99)
[2016-12-05 09:37] LABS: INFLUENZA A VIRAL ANTIGEN NEGATIVE; INFLUENZA B VIRAL ANTIGEN NEGATIVE
[2016-12-05 17:33] LABS: POINT-OF-CARE METER ID UU14174225
[2016-12-05 18:41] LABS: HEMATOCRIT 28.7 % (36.0-46.0)
[2016-12-05 20:26] LABS: HEMATOCRIT 30.7 % (36.0-46.0); MCV 96.2 FL (83-99)
[2016-12-06 00:06] VITALS: BP 115/73
[2016-12-06 02:23] LABS: HEMATOCRIT 29.6 % (36.0-46.0); MCV 94.9 FL (83-99)
[2016-12-06 04:12] VITALS: BP 137/76
[2016-12-06 06:55] LABS: HEMATOCRIT 30.9 % (36.0-46.0); MCH 29.1 PG (29.0-34.0); MCHC 30.1 G/DL (30.0-36.0); MCV 96.6 FL (83-99); MEAN PLAT.VOLUME 10.4 uM^3 (9.5-12.4); PLATELET COUNT 232 K/uL (156-360); RBC DIS.WIDTH-CV 17.5 % (11.8-14.6); RBC DIS.WIDTH-SD 61.7 % (39-53); WHITE BLOOD COUNT 10.5 K/uL (4.1-10.2)
[2016-12-06 07:00] LABS: HEMATOCRIT 30.6 % (36.0-46.0); MCV 96.2 FL (83-99)
[2016-12-06 07:34] LABS: ANION GAP ND MEQ/L (2-14); CHLORIDE 92 MEQ/L (99-109); GFR ESTIMATE (CALCULATED) > 59 mL/min/; GLUCOSE 253 mg/dL (70-99); POTASSIUM 4.6 MEQ/L (3.7-5.4); SAMPLE HEMOLYSIS CHECK 0; SAMPLE ICTERIC CHECK 0; SAMPLE LIPEMIA CHECK 0; SODIUM 141 MEQ/L (136-147)
[2016-12-06 07:40] LABS: CARBON DIOXIDE (BICARBONATE) > 40.0 MEQ/L (20-31); UREA NITROGEN (BUN) 43 mg/dL (9-23)
[2016-12-06 08:12] VITALS: BP 163/68
[2016-12-06 12:39] VITALS: BP 145/66
[2016-12-06 17:30] VITALS: BP 145/67
[2016-12-06 19:32] VITALS: BP 148/70
[2016-12-06 21:16] LABS: POINT-OF-CARE METER ID UU14174225
[2016-12-07] VITALS: BP 163/70
[2016-12-07 01:55] LABS: HEMATOCRIT 31.5 % (36.0-46.0); MCV 95.5 FL (83-99)
[2016-12-07 03:49] VITALS: BP 156/68
[2016-12-07 07:28] LABS: EOSINOPHIL (%) 0 % (0-5); HEMATOCRIT 31.2 % (36.0-46.0); IMMATURE GRANULOCYTE (%) 2.5 % (0.0-0.7); IMMATURE GRANULOCYTE COUNT 0.2 K/uL; INSTRUMENT ABS NEUTROPHIL CT 8.6 K/uL; LYMPHOCYTE COUNT 0.2 K/uL (1.0-2.8); MCH 29.3 PG (29.0-34.0); MCHC 30.1 G/DL (30.0-36.0); MCV 97.2 FL (83-99); MEAN PLAT.VOLUME 10.2 uM^3 (9.5-12.4); MONOCYTE (%) 4.1 % (3-12); MONOCYTE COUNT 0.4 K/uL (0-0.8); NEUTROPHIL (%) 90.8 % (45-76); NEUTROPHIL COUNT 8.6 K/uL (1.8-6.4); PLATELET COUNT 219 K/uL (156-360); RBC DIS.WIDTH-CV 16.5 % (11.8-14.6); RBC DIS.WIDTH-SD 58.4 % (39-53); RED BLOOD COUNT 3.21 M/uL (3.80-5.20); WHITE BLOOD COUNT 9.5 K/uL (4.1-10.2)
[2016-12-07 07:29] LABS: HEMATOCRIT 30.7 % (36.0-46.0); MCV 96.5 FL (83-99)
[2016-12-07 08:16] VITALS: BP 146/66
[2016-12-07 11:38] LABS: POINT-OF-CARE METER ID UU14174225
[2016-12-07 11:58] VITALS: BP 150/58
[2016-12-07 13:11] LABS: ANION GAP ND MEQ/L (2-14); CHLORIDE 89 MEQ/L (99-109); GFR ESTIMATE (CALCULATED) > 59 mL/min/; GLUCOSE 271 mg/dL (70-99); SAMPLE HEMOLYSIS CHECK 0; SAMPLE ICTERIC CHECK 0; SAMPLE LIPEMIA CHECK 0; SODIUM 140 MEQ/L (136-147); UREA NITROGEN (BUN) 43 mg/dL (9-23)
[2016-12-07 13:24] LABS: CARBON DIOXIDE (BICARBONATE) > 40.0 MEQ/L (20-31)
[2016-12-07 13:45] LABS: HEMATOCRIT 33.7 % (36.0-46.0); MCV 96.6 FL (83-99)
[2016-12-07 16:00] VITALS: BP 144/68
[2016-12-07 19:40] VITALS: BP 137/62
[2016-12-07 20:09] LABS: HEMATOCRIT 31.1 % (36.0-46.0); MCV 96.3 FL (83-99)
[2016-12-07 22:30] LABS: POINT-OF-CARE METER ID UU14174225
[2016-12-08 00:23] VITALS: BP 150/71
[2016-12-08 01:34] LABS: HEMATOCRIT 31.8 % (36.0-46.0); MCV 96.1 FL (83-99)
[2016-12-08 03:38] VITALS: BP 148/67
[2016-12-08 07:18] LABS: EOSINOPHIL (%) 0 % (0-5); HEMATOCRIT 31.7 % (36.0-46.0); IMMATURE GRANULOCYTE (%) 2.3 % (0.0-0.7); IMMATURE GRANULOCYTE COUNT 0.3 K/uL; INSTRUMENT ABS NEUTROPHIL CT 10.7 K/uL; LYMPHOCYTE COUNT 0.3 K/uL (1.0-2.8); MCH 29.1 PG (29.0-34.0); MCV 96.9 FL (83-99); MEAN PLAT.VOLUME 10.2 uM^3 (9.5-12.4); MONOCYTE (%) 4.2 % (3-12); MONOCYTE COUNT 0.5 K/uL (0-0.8); NEUTROPHIL (%) 90.9 % (45-76); NEUTROPHIL COUNT 10.7 K/uL (1.8-6.4); PLATELET COUNT 223 K/uL (156-360); RBC DIS.WIDTH-CV 15.9 % (11.8-14.6); RBC DIS.WIDTH-SD 56.6 % (39-53); RED BLOOD COUNT 3.27 M/uL (3.80-5.20); WHITE BLOOD COUNT 11.8 K/uL (4.1-10.2)
[2016-12-08 07:33] VITALS: BP 121/66
[2016-12-08 07:34] LABS: ANION GAP ND MEQ/L (2-14); CHLORIDE 90 MEQ/L (99-109); GFR ESTIMATE (CALCULATED) > 59 mL/min/; GLUCOSE 249 mg/dL (70-99); POTASSIUM 4.1 MEQ/L (3.7-5.4); SAMPLE HEMOLYSIS CHECK 0; SAMPLE ICTERIC CHECK 0; SAMPLE LIPEMIA CHECK 0; SODIUM 142 MEQ/L (136-147); UREA NITROGEN (BUN) 37 mg/dL (9-23)
[2016-12-08 07:36] LABS: CARBON DIOXIDE (BICARBONATE) > 40.0 MEQ/L (20-31)
[2016-12-08 11:01] VITALS: BP 129/68
[2016-12-08 13:29] LABS: POINT-OF-CARE METER ID UU14174225
[2016-12-08 15:07] VITALS: BP 131/60
[2016-12-08 19:27] VITALS: BP 128/72
[2016-12-08 21:38] LABS: POINT-OF-CARE METER ID UU14174225
[2016-12-09 00:30] VITALS: BP 118/74
[2016-12-09 03:44] VITALS: BP 135/71
[2016-12-09 07:15] VITALS: BP 122/60
[2016-12-09 07:35] LABS: EOSINOPHIL (%) 0.1 % (0-5); HEMATOCRIT 33.5 % (36.0-46.0); IMMATURE GRANULOCYTE (%) 2.6 % (0.0-0.7); IMMATURE GRANULOCYTE COUNT 0.3 K/uL; INSTRUMENT ABS NEUTROPHIL CT 11.2 K/uL; LYMPHOCYTE COUNT 0.4 K/uL (1.0-2.8); MCH 28.4 PG (29.0-34.0); MCHC 29.6 G/DL (30.0-36.0); MEAN PLAT.VOLUME 10.5 uM^3 (9.5-12.4); MONOCYTE (%) 4.6 % (3-12); MONOCYTE COUNT 0.6 K/uL (0-0.8); NEUTROPHIL (%) 89.5 % (45-76); NEUTROPHIL COUNT 11.2 K/uL (1.8-6.4); PLATELET COUNT 229 K/uL (156-360); RBC DIS.WIDTH-CV 15.5 % (11.8-14.6); RED BLOOD COUNT 3.49 M/uL (3.80-5.20); WHITE BLOOD COUNT 12.5 K/uL (4.1-10.2)
[2016-12-09 07:59] LABS: ANION GAP ND MEQ/L (2-14); CHLORIDE 90 MEQ/L (99-109); GFR ESTIMATE (CALCULATED) > 59 mL/min/; GLUCOSE 166 mg/dL (70-99); POTASSIUM 3.7 MEQ/L (3.7-5.4); SAMPLE HEMOLYSIS CHECK 0; SAMPLE ICTERIC CHECK 0; SAMPLE LIPEMIA CHECK 0; SODIUM 142 MEQ/L (136-147); UREA NITROGEN (BUN) 32 mg/dL (9-23)
[2016-12-09 08:00] LABS: CARBON DIOXIDE (BICARBONATE) > 40.0 MEQ/L (20-31)
[2016-12-09 10:48] VITALS: BP 138/72
[2016-12-09 11:21] LABS: POINT-OF-CARE USER ID 606021404
[2016-12-09] MEDS ORDERED: PREDNISONE10 MG PO (12:44)
== END 2016-12-09 14:52 | disposition home health service (06) | DRG 189 ==
LOC: EME 17:20 → 5SOUTH 22:41 → EDOF 22:41 → 5SOUTH 23:42
PROVIDERS: Emergency Medicine; Hospitalist; Internal Medicine; Physician Assistant Medical
PROC: 5A09358 Assistance with Respiratory Ventilation, Less than 24 Consecutive Hours, Intermittent Positive Airway Pressure (ICD-10-PCS; principal; 2016-12-03)
PROC: 30233N1 Transfusion of Nonautologous Red Blood Cells into Peripheral Vein, Percutaneous Approach (ICD-10-PCS; 2016-12-04)
DX: J96.21 Acute and chronic respiratory failure with hypoxia (principal); I11.0 Hypertensive heart disease with heart failure; I50.33 Acute on chronic diastolic (congestive) heart failure; J44.1 Chronic obstructive pulmonary disease with (acute) exacerbation; E87.2 Acidosis; K92.2 Gastrointestinal hemorrhage, unspecified; J96.22 Acute and chronic respiratory failure with hypercapnia; I95.9 Hypotension, unspecified; D50.0 Iron deficiency anemia secondary to blood loss (chronic); E11.9 Type 2 diabetes mellitus without complications; E78.5 Hyperlipidemia, unspecified; I25.10 Atherosclerotic heart disease of native coronary artery without angina pectoris; K21.9 Gastro-esophageal reflux disease without esophagitis; I27.2 Other secondary pulmonary hypertension; I89.0 Lymphedema, not elsewhere classified; E66.9 Obesity, unspecified; Z99.81 Dependence on supplemental oxygen; Z68.39 Body mass index [BMI] 39.0-39.9, adult; Z95.0 Presence of cardiac pacemaker; Z87.891 Personal history of nicotine dependence; Z91.041 Radiographic dye allergy status; Z95.2 Presence of prosthetic heart valve; Q27.33 Arteriovenous malformation of digestive system vessel
CPT/HCPCS: 36600; 71010; 71020; 71275; 80048; 82272; 82803; 82948; 83880; 84484; 85014; 85018; 85025; 85027; 85379; 86850; 86900; 86901; 86920; 87502; 93005; 94002; 94640; 94640 76; 94760; 94799; 99202; 99281; 99285; J1650; J1815; J1940; J1956; J2060; J2930; P9016

== ENCOUNTER 2016-12-24 03:14 | Inpatient (IN) | payer OTHER, MEDICARE ==
[2016-12-24] VITALS (8 sets, daily range): BP systolic 85–132; BP diastolic 38–103
[~2016-12-24] VITALS: Ht 157.5 cm; Wt 101.6 kg
[~2016-12-24 03:14] MED LIST changes: +CYANOCOBAL1000 MCG/2 IM; +ZESTRIL10 MG PO
[2016-12-24 04:07] LABS: BICARBONATE 45.5 mEq/L (22-26); CARBOXY HGB 2.9 % (0-5); METHEMOGLOBIN 1.3 % (0-1.5); PCO2 99 mm Hg (35-45); PO2 89 mm Hg (80-100); SITE RR
[2016-12-24 04:08] LABS: COMMENTS - BLOOD GASES C+A+; DEVICE VENTILATOR; FI02 100 %; MECHANICAL RATE 18 resp/min; MODE A/C; PEEP 5 CM/H20; TIDAL VOLUME 450 ML; TOTAL RESP RATE 18 resp/min; pH 7.27 (7.35-7.45)
[2016-12-24 04:17] LABS: CHLORIDE 91 mEq/L (99-109); POTASSIUM 4.2 mEq/L (3.7-5.4); SODIUM 141 mEq/L (136-147)
[2016-12-24 04:19] LABS: EOSINOPHIL (%) 1.4 % (0-5); EOSINOPHIL COUNT 0.2 K/uL (0-0.3); IMMATURE GRANULOCYTE (%) 2.4 % (0.0-0.7); IMMATURE GRANULOCYTE COUNT 0.3 K/uL; LYMPHOCYTE COUNT 1.1 K/uL (1.0-2.8); MCH 29.5 PG (29.0-34.0); MCHC 28.4 G/DL (30.0-36.0); MEAN PLAT.VOLUME 10.3 uM^3 (9.5-12.4); MONOCYTE (%) 4.1 % (3-12); MONOCYTE COUNT 0.5 K/uL (0-0.8); NEUTROPHIL (%) 83.4 % (45-76); NRBC (%) 0.2 /100 WBC (0-0); PLATELET COUNT 210 K/uL (156-360); RBC DIS.WIDTH-CV 15.2 % (11.8-14.6); RBC DIS.WIDTH-SD 58.3 % (39-53); RED BLOOD COUNT 2.98 M/uL (3.80-5.20); WHITE BLOOD COUNT 13.2 K/uL (4.1-10.2)
[2016-12-24 04:19] LABS: GLUCOSE 292 mg/dL (70-99)
[2016-12-24 04:21] LABS: ANION GAP 10 MEQ/L (2-14); TOTAL BILIRUBIN 0.4 mg/dL (0.0-1.0)
[2016-12-24 04:23] LABS: ALKALINE PHOSPHATASE 79 IU/L (3-129); GFR ESTIMATE (CALCULATED) 42 mL/min/
[2016-12-24 04:24] LABS: UREA NITROGEN (BUN) 26 mg/dL (9-23)
[2016-12-24 04:26] LABS: LIPASE 46 U/L (1.0-51.0)
[2016-12-24 04:27] LABS: INTER. NORMALIZED RATIO 1.1; PROTHROMBIN TIME 10.9 (9.2-11.2); PTT 26.5 (25-32)
[2016-12-24 04:33] LABS: TROP-I INTERPRETATION NEGATIVE; TROPONIN-I < 0.01 ng/mL (0.0-0.30)
[2016-12-24 05:14] LABS: BASE EXCESS 16.4 mEq/L (-3 to +3); BICARBONATE 43.9 mEq/L (22-26); CARBOXY HGB 2.7 % (0-5); METHEMOGLOBIN 1.4 % (0-1.5); PCO2 76 mm Hg (35-45); PO2 61 mm Hg (80-100); pH 7.37 (7.35-7.45)
[2016-12-24 05:15] LABS: COMMENTS - BLOOD GASES C+A+; DEVICE VENTILATOR; FI02 100 %; MECHANICAL RATE 22 resp/min; MODE AC; PEEP 5 CM/H20; SITE RR; TIDAL VOLUME 450 ML; TOTAL RESP RATE 22 resp/min
[2016-12-24 09:28] LABS: BASE EXCESS 13.7 mEq/L (-3 to +3); BICARBONATE 39.4 mEq/L (22-26); CARBOXY HGB 2.6 % (0-5); METHEMOGLOBIN 1.5 % (0-1.5); PO2 59 mm Hg (80-100); pH 7.44 (7.35-7.45)
[2016-12-24 09:29] LABS: DEVICE VENT; FI02 70 %; MECHANICAL RATE 22 resp/min; MODE AC; PCO2 58 mm Hg (35-45); PEEP 10 CM/H20; SITE LR; TIDAL VOLUME 450 ML; TOTAL RESP RATE 22 resp/min
[2016-12-24 10:41] LABS: METH RESISTANT S AUREUS PCR NEGATIVE (NEGATIVE)
[2016-12-24 10:44] LABS: PROBE CHECK PASS; SPECIMEN PROCESSING CONTROL PASS
[2016-12-24 11:34] LABS: TROP-I INTERPRETATION NEGATIVE; TROPONIN-I 0.02 ng/mL (0.0-0.30)
[2016-12-24 13:43] LABS: POINT-OF-CARE METER ID UU13113731
[2016-12-24] MEDS ORDERED: NORVASC5 MG PO (16:01)
[2016-12-24] MEDS ORDERED: ZESTRIL20 MG PO (16:01)
[2016-12-24] MEDS ORDERED: PANTOPRAZOLE SO40 MG PO (16:02)
[2016-12-24] MEDS ORDERED: LASIX20 MG PO (16:02)
[2016-12-24] MEDS ORDERED: GLUCOTROL10 MG PO (16:03)
[2016-12-24] MEDS ORDERED: ZOCOR20 MG PO (16:03)
[2016-12-24] MEDS ORDERED: SYNTHROID50 MCG PO (16:03)
[2016-12-24] MEDS ORDERED: GLUCOPHAGE500 MG PO (16:04)
[2016-12-24] MEDS ORDERED: LOPRESSOR50 MG PO (16:04)
[2016-12-24 16:05] LABS: HEMATOCRIT 26.6 % (36.0-46.0); MCH 28.7 PG (29.0-34.0); MCHC 29.3 G/DL (30.0-36.0); MEAN PLAT.VOLUME 10.6 uM^3 (9.5-12.4); RBC DIS.WIDTH-CV 15.5 % (11.8-14.6); RED BLOOD COUNT 2.72 M/uL (3.80-5.20); WHITE BLOOD COUNT 10.2 K/uL (4.1-10.2)
[2016-12-24] MEDS ORDERED: SPIRIVA RESPIMAT4 GM IH (16:05)
[2016-12-24 16:06] LABS: MCV 97.8 FL (83-99); PLATELET COUNT 144 K/uL (156-360)
[2016-12-24] MEDS ORDERED: PROAIR HFA8.5 GM IH (16:06)
[2016-12-24] MEDS ORDERED: ADVAIR 500/501 DISK IH (16:06)
[2016-12-24] MEDS ORDERED: K-DUR10 MEQ PO (16:12)
[2016-12-24 16:17] LABS: TROP-I INTERPRETATION NEGATIVE; TROPONIN-I 0.02 ng/mL (0.0-0.30)
[2016-12-24 17:29] LABS: POINT-OF-CARE METER ID UU13113731
[2016-12-25 00:45] LABS: POINT-OF-CARE USER ID PHATLC
[2016-12-25 05:57] LABS: POINT-OF-CARE USER ID PHATLC
[2016-12-25 06:00] LABS: MCH 28.7 PG (29.0-34.0); MCV 95.8 FL (83-99); MEAN PLAT.VOLUME 11.3 uM^3 (9.5-12.4); PLATELET COUNT 138 K/uL (156-360); RBC DIS.WIDTH-CV 15.9 % (11.8-14.6); RBC DIS.WIDTH-SD 54.7 % (39-53); RED BLOOD COUNT 2.61 M/uL (3.80-5.20); WHITE BLOOD COUNT 9.2 K/uL (4.1-10.2)
[2016-12-25 06:56] LABS: ANION GAP 10 MEQ/L (2-14); CHLORIDE 97 MEQ/L (99-109); GFR ESTIMATE (CALCULATED) 51 mL/min/; GLUCOSE 320 mg/dL (70-99); MAGNESIUM 1.1 mg/dl (1.3-2.7); POTASSIUM 3.9 MEQ/L (3.7-5.4); SAMPLE HEMOLYSIS CHECK 0; SAMPLE ICTERIC CHECK 0; SAMPLE LIPEMIA CHECK 0; SODIUM 141 MEQ/L (136-147); UREA NITROGEN (BUN) 25 mg/dL (9-23)
[2016-12-25 12:00] VITALS: BP 106/66
[2016-12-25 12:02] LABS: POINT-OF-CARE METER ID UU14174217; POINT-OF-CARE USER ID 606021424
[2016-12-26 05:00] VITALS: BP 106/66
[2016-12-26 06:00] LABS: POINT-OF-CARE METER ID UU13113731
[2016-12-26 06:10] LABS: EOSINOPHIL (%) 0 % (0-5); HEMATOCRIT 25.6 % (36.0-46.0); IMMATURE GRANULOCYTE (%) 0.7 % (0.0-0.7); IMMATURE GRANULOCYTE COUNT 0.1 K/uL; INSTRUMENT ABS NEUTROPHIL CT 8.4 K/uL; LYMPHOCYTE COUNT 0.2 K/uL (1.0-2.8); MCH 29.2 PG (29.0-34.0); MCHC 30.5 G/DL (30.0-36.0); MCV 95.9 FL (83-99); MEAN PLAT.VOLUME 11.4 uM^3 (9.5-12.4); MONOCYTE (%) 3.3 % (3-12); MONOCYTE COUNT 0.3 K/uL (0-0.8); NEUTROPHIL (%) 94.3 % (45-76); NEUTROPHIL COUNT 8.4 K/uL (1.8-6.4); PLATELET COUNT 151 K/uL (156-360); RBC DIS.WIDTH-CV 16.6 % (11.8-14.6); RBC DIS.WIDTH-SD 57.1 % (39-53); RED BLOOD COUNT 2.67 M/uL (3.80-5.20); WHITE BLOOD COUNT 8.9 K/uL (4.1-10.2)
[2016-12-26 06:37] LABS: ALKALINE PHOSPHATASE 59 IU/L (3-129); ANION GAP 13 MEQ/L (2-14); CHLORIDE 102 MEQ/L (99-109); GFR ESTIMATE (CALCULATED) 51 mL/min/; GLUCOSE 262 mg/dL (70-99); SAMPLE HEMOLYSIS CHECK 0; SAMPLE ICTERIC CHECK 0; SAMPLE LIPEMIA CHECK 0; SODIUM 147 MEQ/L (136-147); TOTAL BILIRUBIN 0.4 MG/DL (0.0-1.0); UREA NITROGEN (BUN) 28 mg/dL (9-23)
[2016-12-26 06:40] LABS: MAGNESIUM 2.2 mg/dl (1.3-2.7); POTASSIUM 3.1 MEQ/L (3.7-5.4)
[2016-12-26 08:00] VITALS: BP 125/51
[2016-12-26 08:38] LABS: BASE EXCESS 9.9 mEq/L (-3 to +3); BICARBONATE 34.8 mEq/L (22-26); CARBOXY HGB 1.6 % (0-5); METHEMOGLOBIN 0.9 % (0-1.5); PCO2 49 mm Hg (35-45); pH 7.46 (7.35-7.45)
[2016-12-26 08:39] LABS: COMMENTS - BLOOD GASES C+; CONTINUOUS POS AIRWAY PRESSURE 5 cm H2O; DEVICE 840; FI02 40 %; MODE SPONT; PO2 83 mm Hg (80-100); PRES. SUPPORT 10 CM/H2O; SITE ALINE; TOTAL RESP RATE 23 resp/min
[2016-12-26 11:57] LABS: POINT-OF-CARE METER ID UU13113731
[2016-12-26 18:10] LABS: POINT-OF-CARE METER ID UU14174217
[2016-12-27 01:12] LABS: POINT-OF-CARE METER ID UU14174217
[2016-12-27 06:25] LABS: POINT-OF-CARE METER ID UU14162636
[2016-12-27 08:00] VITALS: BP 151/72
[2016-12-27 09:43] LABS: ANION GAP 10 MEQ/L (2-14); CHLORIDE 101 MEQ/L (99-109); GFR ESTIMATE (CALCULATED) 51 mL/min/; GLUCOSE 243 mg/dL (70-99); MAGNESIUM 2.4 mg/dl (1.3-2.7); SAMPLE HEMOLYSIS CHECK 0; SAMPLE ICTERIC CHECK 0; SAMPLE LIPEMIA CHECK 0; SODIUM 144 MEQ/L (136-147); UREA NITROGEN (BUN) 33 mg/dL (9-23)
[2016-12-27 09:57] LABS: HEMATOCRIT 32.4 % (36.0-46.0); MCHC 28.4 G/DL (30.0-36.0); MEAN PLAT.VOLUME 10.4 uM^3 (9.5-12.4); NRBC (%) 0.2 /100 WBC (0-0); RBC DIS.WIDTH-CV 16.2 % (11.8-14.6); RBC DIS.WIDTH-SD 61.3 % (39-53); RED BLOOD COUNT 3.17 M/uL (3.80-5.20)
[2016-12-27 10:01] LABS: MCV 102.2 FL (83-99); PLATELET COUNT 216 K/uL (156-360); WHITE BLOOD COUNT 13.1 K/uL (4.1-10.2)
[2016-12-27 10:07] LABS: POTASSIUM 4.5 MEQ/L (3.7-5.4)
[2016-12-27 12:00] VITALS: BP 127/60
[2016-12-27 12:43] LABS: POINT-OF-CARE METER ID UU14174217
[2016-12-27 16:00] VITALS: BP 103/56
[2016-12-27 18:28] LABS: POINT-OF-CARE METER ID UU13113803
[2016-12-27 20:00] VITALS: BP 125/62
[2016-12-27 22:00] VITALS: BP 118/66
[2016-12-27 22:45] LABS: POINT-OF-CARE METER ID UU14174217
[2016-12-28] VITALS (9 sets, daily range): BP systolic 103–146; BP diastolic 54–91
[2016-12-28 07:12] LABS: POINT-OF-CARE METER ID UU13113803
[2016-12-28 09:11] LABS: ANION GAP 6 MEQ/L (2-14); CHLORIDE 100 MEQ/L (99-109); GFR ESTIMATE (CALCULATED) 47 mL/min/; GLUCOSE 162 mg/dL (70-99); POTASSIUM 4.4 MEQ/L (3.7-5.4); SAMPLE HEMOLYSIS CHECK 0; SAMPLE ICTERIC CHECK 0; SAMPLE LIPEMIA CHECK 0; SODIUM 141 MEQ/L (136-147); UREA NITROGEN (BUN) 41 mg/dL (9-23)
[2016-12-28 12:08] LABS: POINT-OF-CARE METER ID UU14174217
[2016-12-28 18:21] LABS: POINT-OF-CARE METER ID UU13113803
[2016-12-29] VITALS (8 sets, daily range): BP systolic 109–144; BP diastolic 55–76
[2016-12-29 00:47] LABS: POINT-OF-CARE METER ID UU13113803
[2016-12-29 06:26] LABS: HEMATOCRIT 28.9 % (36.0-46.0); MCH 28.3 PG (29.0-34.0); MCHC 28.7 G/DL (30.0-36.0); MCV 98.6 FL (83-99); MEAN PLAT.VOLUME 10.8 uM^3 (9.5-12.4); NRBC (%) 0.4 /100 WBC (0-0); PLATELET COUNT 169 K/uL (156-360); RBC DIS.WIDTH-CV 14.9 % (11.8-14.6); RBC DIS.WIDTH-SD 53.9 % (39-53); RED BLOOD COUNT 2.93 M/uL (3.80-5.20)
[2016-12-29 06:30] LABS: ANION GAP 9 MEQ/L (2-14); CHLORIDE 98 MEQ/L (99-109); GFR ESTIMATE (CALCULATED) 51 mL/min/; GLUCOSE 153 mg/dL (70-99); POTASSIUM 4.1 MEQ/L (3.7-5.4); SAMPLE HEMOLYSIS CHECK 0; SAMPLE ICTERIC CHECK 0; SAMPLE LIPEMIA CHECK 0; SODIUM 144 MEQ/L (136-147); UREA NITROGEN (BUN) 43 mg/dL (9-23)
[2016-12-29 06:45] LABS: WHITE BLOOD COUNT 7.7 K/uL (4.1-10.2)
[2016-12-29 12:25] LABS: POINT-OF-CARE METER ID UU13113803
[2016-12-29 17:14] LABS: POINT-OF-CARE METER ID UU14174217
[2016-12-29 21:49] LABS: POINT-OF-CARE METER ID UU14174217
[2016-12-30] VITALS (8 sets, daily range): BP systolic 121–149; BP diastolic 58–88
[2016-12-30 06:16] LABS: HEMATOCRIT 30.7 % (36.0-46.0); MCH 28.9 PG (29.0-34.0); MCV 99.7 FL (83-99); MEAN PLAT.VOLUME 10.6 uM^3 (9.5-12.4); NRBC (%) 0.4 /100 WBC (0-0); PLATELET COUNT 208 K/uL (156-360); RBC DIS.WIDTH-SD 54.9 % (39-53); RED BLOOD COUNT 3.08 M/uL (3.80-5.20)
[2016-12-30 06:22] LABS: WHITE BLOOD COUNT 10.5 K/uL (4.1-10.2)
[2016-12-30 06:31] LABS: ANION GAP 7 MEQ/L (2-14); CHLORIDE 99 MEQ/L (99-109); GFR ESTIMATE (CALCULATED) > 59 mL/min/; GLUCOSE 201 mg/dL (70-99); POTASSIUM 4.4 MEQ/L (3.7-5.4); SAMPLE HEMOLYSIS CHECK 0; SAMPLE ICTERIC CHECK 0; SAMPLE LIPEMIA CHECK 0; SODIUM 144 MEQ/L (136-147); UREA NITROGEN (BUN) 35 mg/dL (9-23)
[2016-12-30 06:37] LABS: ABS NEUTROPHIL COUNT 9.9; EOSINOPHIL ABS CT 0; INSTRUMENT ABS NEUTROPHIL CT 8.8 K/uL; LYMPHOCYTES 2.6 % (15.0-45.0); NUCLEATED RBC'S 0.9; SEG.NEUTROPHILS 94.7 % (46.0-76.0)
[2016-12-30 08:27] LABS: POINT-OF-CARE METER ID UU13113731
[2016-12-30 12:10] LABS: POINT-OF-CARE METER ID UU14174217
[2016-12-30 17:48] LABS: POINT-OF-CARE METER ID UU14174217
[2016-12-30 19:19] LABS: BASE EXCESS 13.7 mEq/L (-3 to +3); BICARBONATE 44.4 mEq/L (22-26); CARBOXY HGB 2.2 % (0-5); COMMENTS - BLOOD GASES C+; DEVICE NCHH; FI02 100 %; METHEMOGLOBIN 1.7 % (0-1.5); PCO2 106 mm Hg (35-45); PO2 45 mm Hg (80-100); SITE RR
[2016-12-30 19:20] LABS: O2 FLOW 60 L/MIN; pH 7.23 (7.35-7.45)
[2016-12-30 22:19] LABS: POINT-OF-CARE METER ID UU13113731
[2016-12-31] VITALS: BP 117/58
[2016-12-31 02:00] VITALS: BP 139/56
[2016-12-31 04:00] VITALS: BP 108/48
[2016-12-31 06:00] VITALS: BP 113/60
[2016-12-31 07:07] LABS: ANION GAP 10 MEQ/L (2-14); CHLORIDE 96 MEQ/L (99-109); GFR ESTIMATE (CALCULATED) > 59 mL/min/; GLUCOSE 230 mg/dL (70-99); MAGNESIUM 2.2 mg/dl (1.3-2.7); POTASSIUM 4.4 MEQ/L (3.7-5.4); SAMPLE HEMOLYSIS CHECK 0; SAMPLE ICTERIC CHECK 0; SAMPLE LIPEMIA CHECK 0; SODIUM 145 MEQ/L (136-147); UREA NITROGEN (BUN) 36 mg/dL (9-23)
[2016-12-31 07:30] LABS: HEMATOCRIT 35.7 % (36.0-46.0); MCH 28.7 PG (29.0-34.0); MCV 102.3 FL (83-99); MEAN PLAT.VOLUME 10.5 uM^3 (9.5-12.4); RBC DIS.WIDTH-CV 15.2 % (11.8-14.6); RBC DIS.WIDTH-SD 56.7 % (39-53); RED BLOOD COUNT 3.49 M/uL (3.80-5.20)
[2016-12-31 07:32] LABS: PLATELET COUNT 291 K/uL (156-360)
[2016-12-31 08:00] VITALS: BP 73/49
== END 2016-12-31 09:52 | DRG 871 ==
LOC: EME → EDBD 03:14 → EDOF 06:51 → 4WEST 06:51 → EDOF 06:51 → 4WEST 08:36
PROVIDERS: Emergency Medicine; Family Medicine; Hospitalist; Internal Medicine; Internal Medicine Critical Care Medicine; Specialist; Student in an Organized Health Care Education/Training Program
PROC: 5A1945Z Respiratory Ventilation, 24-96 Consecutive Hours (ICD-10-PCS; principal; 2016-12-24)
PROC: 0BH17EZ Insertion of Endotracheal Airway into Trachea, Via Natural or Artificial Opening (ICD-10-PCS; 2016-12-24)
PROC: 02HV33Z Insertion of Infusion Device into Superior Vena Cava, Percutaneous Approach (ICD-10-PCS; 2016-12-24)
PROC: 03HY32Z Insertion of Monitoring Device into Upper Artery, Percutaneous Approach (ICD-10-PCS; 2016-12-24)
PROC: 5A09357 Assistance with Respiratory Ventilation, Less than 24 Consecutive Hours, Continuous Positive Airway Pressure (ICD-10-PCS; 2016-12-28)
DX: A40.9 Streptococcal sepsis, unspecified (principal); R65.21 Severe sepsis with septic shock; J13 Pneumonia due to Streptococcus pneumoniae; J96.21 Acute and chronic respiratory failure with hypoxia; J96.22 Acute and chronic respiratory failure with hypercapnia; J44.0 Chronic obstructive pulmonary disease with (acute) lower respiratory infection; J44.1 Chronic obstructive pulmonary disease with (acute) exacerbation; I50.33 Acute on chronic diastolic (congestive) heart failure; I82.612 Acute embolism and thrombosis of superficial veins of left upper extremity; E87.2 Acidosis; I48.0 Paroxysmal atrial fibrillation; E66.01 Morbid (severe) obesity due to excess calories; E11.65 Type 2 diabetes mellitus with hyperglycemia; D50.0 Iron deficiency anemia secondary to blood loss (chronic); I27.2 Other secondary pulmonary hypertension; I25.10 Atherosclerotic heart disease of native coronary artery without angina pectoris; Z95.2 Presence of prosthetic heart valve; Z99.81 Dependence on supplemental oxygen; Z66 Do not resuscitate; Z51.5 Encounter for palliative care
CPT/HCPCS: 36600; 36620; 70450; 71010; 71275; 74177; 80048; 80053; 82565; 82803; 82948; 83605; 83690; 83735; 83880; 84100; 84484; 84520; 85025; 85027; 85610; 85730; 87040; 87070; 87186; 87205; 87641; 87801; 88160; 93005; 93306; 93970; 94002; 94003; 94010; 94640; 94640 76; 94644; 94660; 94668; 94760; 94799; 97530 GO; 97530 GP; 99202; 99281; 99285; C9113; J0696; J1644; J1815; J1940; J1956; J2060; J2250; J2370; J2543; J2704; J2920; J2930; J3010; J3370; J3475; J7030; J7040; J7050; J7644